=== PATIENT | male | born 1970 | race Caucasian/White ===

== ENCOUNTER → 2020-01-25 08:34 | Outpatient (CLI) | payer BC | END | disposition home or self-care (01) | LOC: D.HCCECHO 08:34 → D.HCCARDIO 09:30 | PROVIDERS: ATTEND Internal Medicine Cardiovascular Disease | DX: I20.9 Angina pectoris, unspecified (principal); R06.00 Dyspnea, unspecified ==

== ENCOUNTER 2020-02-02 07:26 | Outpatient (CLI) | payer BC ==
[~2020-02-02] VITALS: Ht 188 cm; Wt 113.6 kg
--- NOTE | ~2020-02-02 | HEMODYNAMI ---
PATIENT:WILL BERKOWITZ JR MEDICAL RECORD: [id number] : 66 LOCATION:D.CAT ADMISSION DATE: 02/02/20 Generatedon:02/02/20209:43 Patient name: WILL BERKOWITZ Patient #: [id number] SSN: DO B: 1970 Date of study: 02/02/2020 Page: Of Hemodynamic Procedure Report Patient Data Patient Demographics Procedure consent was obtained First Name: WILL Gender: Male Last Name: WOO Suffix: [facility] Initial: Bernadette : 1970 Patient #: [id number] Age: 50 year(s) Race: Additional ID: [id number] Contact details Address: [address] [place] [address] State: [place] City: [place] Zip code: [address] Past Medical History Allergies Allergen Reaction Date Comments Reported Other allergy 02/02/2020 IODINATED CONTRAST MEDIA/PCN Admission Admission Data Admission Date: 02/02/2020 Admission Time: 7:26 Arrival Date: 02/02/2020 Arrival Time: 0:00 Admit Source: Other Insurance Payor: Private health insurance [facility] #: [id number] Height (in.): 74 BSA: 2.39 (m2) Height (cm.): 187.96 BMI: 32.16 (kg/m2) Weight (lbs.): 250.51 Weight (kg.): 113.63 Lab Results Lab Result Date: 02/02/2020 Lab Result Time: 0:00 Biochemistry Name Units Result Min Max BUN mg/dl 14 --(--*-)-- 7 18 Creatinine mg/dl 1.1 --(--*-)-- 0.6 1.3 eGFR ml/min 75 *-(----)-- 90 120 NONAFRICAN CBC Name Units Result Min Max Hematocrit % 43.1 --(*---)-- 42 54 Hemoglobin g/dl 13.7 --(*---)-- 13.5 17.5 Procedure Procedure Types Cath Procedure Diagnostic Procedure [facility] w/Coronaries Sedation Charges Moderate Sedation up to 15 minutes Procedure Description Procedure Date Procedure Date: 02/02/2020 Procedure Start Time: 9:25 Procedure End Time: 9:40 Procedure Staff Name Function Mannie Dozier MD Performing Physician Cathy Oliveros RT Monitor Suha Garcia RT Scrub Renée Glaser RN Nurse Latasha Atkins RT Classified Advertising Supervisor Procedure Data Cath Procedure Fluoroscopy Diagnostic fluoroscopy Total fluoroscopy Time: 4.8 time: 4.8 min min Diagnostic fluoroscopy Total fluoroscopy dose: 763 dose: 763 mGy mGy Contrast Material Contrast Material Type Amount (ml) Isovue 300 68 Entry Location Entry Primary Successful Side Size Upsize Upsize Entry Closure Rincon ccessful Closure Location (Fr) 1 (Fr) 2 (Fr) Remarks Device Remarks Radial Right 6 Fr Mechanical artery Short Compression Estimated blood loss: 5 ml Diagnostic catheters Device Type Used For End Catheter Placement DIAGNOSTIC [place] 110cm 5 Procedure Fr catheter ([id number]) DIAGNOSTIC Ernie 110cm Procedure 5Fr catheter (075706) DIAGNOSTIC AR MOD 5Fr Procedure Catheter ([id number]) Procedure Complications No complications Procedure Medications Medication Administration Route Dosage Oxygen etCO2 Nasal cannula 2 l/min Lidocaine 2% added to field 20 Heparin Flush Bag added to field 2 bags (1000units/500ml NS) 0.9% NaCl I.V. 100 ml/hr Radial Cocktail I.A. 1 syringe (Verapamil 2mg/Nitro 400mcg/Heparin 1500units) Versed I.V. 2 mg Fentanyl I.V. 100 mcg Versed I.V. 2 mg Fentanyl I.V. 50 mcg Versed I.V. 1 mg Fentanyl I.V. 50 mcg Versed I.V. 1 mg Hemodynamics Rest BSA: 2.39 (m2) HGB: 13.7 (g/dl) O2 Consumption: Estimated: 278.59 (ml/min) O2 Co nsumption indexed: Estimated:116.56 (ml/min/m) Heart Rate: 63 (bpm) Pressure Samples Time Site Value (mmHg) Purpose Heart Use Rate(bpm) 9:28 LV 121/4,12 Snapshot 68 Gradients Valve Time Site Site Mean SEP/DFP Peak To Heart Use 1 2 (mmHg) (sec/min) Peak Rate (mmHg) (bpm) Aortic 9:29 LV AO 62 Snapshots Pre Cath Intra NCS Post Cath Vital Signs Time Heart Resp SPO2 etCO2 NIBP (mmHg) Rhythm Pain Sedation Rate (ipm) (%) (mmHg) Status Level (bpm) 9:12:00 61 18 99 29.2 164/97(121) NSR 0 (11) 10(A) , No pain 9:16:23 61 19 97 34.4 149/109(131) NSR 0 (11) 10(A) , No pain 9:20:41 58 16 93 32.9 136/81(117) NSR 0 (11) 10(A) , No pain 9:24:57 63 15 95 33.7 134/86(114) NSR 0 (11) 10(A) , No pain 9:29:09 61 16 94 33.7 110/69(103) NSR 0 (11) 9(A) , No pain 9:33:23 55 15 93 35.2 110/67(83) NSR 0 (11) 9(A) , No pain 9:37:37 60 13 94 35.2 114/69(81) NSR 0 (11) 10(A) , No pain Medications Time Medication Route Dose Verified Delivered Reason Notes Effectiveness by by 9:13:15 Oxygen etCO2 2 l/min Mannie Buffie used for Nasal Jacoby Glaser RN procedure cannula 9:13:21 Lidocaine 2% added 20ml Mannie Mannie for local to vial Jacoby Dozier MD anesthetic field 9:13:27 Heparin Flush added 2 bags Mannie Mannie used for Bag to Jacoby Dozier MD procedure (1000units/500ml field NS) 9:13:34 0.9% NaCl I.V. 100 Mannie Buffie Per ml/hr Jacoby Glaser RN physician 9:18:03 Versed I.V. 2 mg Mannie Buffie for sedation Jacoby Glaser RN 9:18:09 Fentanyl I.V. 100 mcg Mannie Buffie for sedation Jacoby Glaser RN 9:24:32 Versed I.V. 2 mg Mannie Buffie for sedation Jacoby Glaser RN 9:24:36 Fentanyl I.V. 50 mcg Mannie Buffie for sedation Jacoby Glasre RN 9:27:39 Radial Cocktail I.A. 1 Mannie Mannie for (Verapamil syringe Jacoby Dozier MD vasodilation 2mg/Nitro 400mcg/Heparin 1500units) 9:29:34 Versed I.V. 1 mg Mannie Buffie for sedation Jacoby Glaser RN 9:29:37 Fentanyl I.V. 50 mcg Mannie Buffie for sedation Jacoby Glaser RN 9:35:39 Versed I.V. 1 mg Mannie Buffie for sedation Jacoby Glaser whale trainer Log Time Note 8:48:37 Informed consent obtained and on chart 8:48:45 Diagnostic Cath Status : Elective 8:49:35 Lab Result : eGFR NONAFRICAN 75 ml/min 8:49:35 Lab Result : Hemoglobin 13.7 g/dl 8:49:35 Lab Result : BUN 14 mg/dl 8:49:35 Lab Result : Creatinine 1.1 mg/dl 8:49:35 Lab Result : Hematocrit 43.1 % 8:49:39 Arrival Date: 02/02/2020 12:00:00 AM 8:49:40 Admit Source: Other 8:49:44 Patient Height : 74 inches 8:49:49 Patient Weight : 250.51 lbs 8:49:56 Insurance Payor : Private health insurance 8:58:52 Procedure Status Elective Heart Cath (OP). 8:58:55 Latasha Atkins RT(R) sent for patient. Start room use. 8:59:03 Time tracking: Regular hours (M-F 7:00 - 5:00) 8:59:08 Plan of Care:Hemodynamics will remain stable., Cardiac rhythm will remain stable., Comfort level will be maintained., Respiratory function will remain adequate., Patient/ family verbilizes understanding of procedure., Procedure tolerated without complication., Recovers from procedure without complications.. 9:02:19 Stress Test: yes; abnormal INFERIORLY 9:02:24 Lab results completed and on chart. 9:03:03 Patient allergic to Other allergyIODINATED CONTRAST MEDIA/PCN 9:03:50 ACC Patient presents with Stable Angina CCS Anginal Class 2--Slight limitation of ordinary activity. 9:04:00 Patient received from Pre/Post Procedure Room to CCL 1 Alert and oriented. Tansferred to table in Supine position. 9:04:02 Warm blankets applied, and meli hugger turned on for patient comfort. 9:04:03 Correct patient and procedure confirmed by team. 9:04:04 ECG and BP/O2 sat monitors applied to patient. 9:10:42 Vital chart was started 9:10:43 Baseline sample Acquired. 9:10:52 Rhythm: sinus rhythm 9:10:55 Full Disclosure recording started 9:10:56 9:11:02 H&P Date Dictated: 02/02/2020 H&P Addendum completed by physician on day of procedure. (MUST COMPLETE FOR ALL OUTPATIENTS), New H&P dictated by physician.. 9:11:05 Pre-procedure instructions explained to patient. 9:11:05 Pre-op teaching completed and patient verbalized understanding. 9:11:08 Family unavailable. 9:11:11 Patient NPO since Midnight. 9:11:17 Is the patient allergic to Iodine/contrast media? Yes. 9:11:20 Was the patient premedicated? Yes 9:11:23 Is patient on blood thinner?No 9:11:27 Patient diabetic? No. 9:11:29 ----Pre-sedation anethsthesia assessment.---- 9:11:35 Previous problem with sedation/anesthesia? No ? 9:11:38 Snore? Yes 9:11:40 Sleep apnea? No 9:11:42 Deviated septum? No 9:11:47 Opens mouth fully? Yes 9:11:49 Sticks out tongue? Yes 9:11:53 Airway obstruction? No ? 9:11:58 Dentures? No ? 9:12:03 Pre procedure: right dorsailis pedis pulse 1+ Palpable, but thready & weak; easily obliterated 9:12:23 IV patent on arrival in left forearm with 0.9% NaCl at O. 9:12:40 Right Radial & Right Groin area was prepped with chlora-prep and draped in sterile fashion 9:12:43 Alarms reviewed by R. N. 9:12:43 Sharps counted by scrub and verified by R.N. 9:13:01 Notification to Mrs. Berkowitz made via telephone. 9:13:06 THE PATIENTS WAS CONTACTED BY RENÉE. 9:13:15 Oxygen 2 l/min etCO2 Nasal cannula was administered by Renée Glaser RN; used for procedure; Verbal order read back and verified. 9:13:21 Lidocaine 2% 20ml vial added to field was administered by Mannie Dozier MD; for local anesthetic; Verbal order read back and verified. 9:13:27 Heparin Flush Bag (1000units/500ml NS) 2 bags added to field was administered by Mannie Dozier MD; used for procedure; Verbal order read back and verified. 9:13:34 0.9% NaCl 100 ml/hr I.V. was administered by Renée Glaser RN; Per physician; Verbal order read back and verified. 9:13:45 Use device set Radial Dx or PCI 9:13:46 ACIST Syringe (77565) opened to sterile field. 9:13:47 Medline Cath Pack ([id number]) opened to sterile field. 9:13:48 Bag Decanter (2002S) opened to sterile field. 9:13:49 ACIST Hand Control (61765) opened to sterile field. 9:13:49 ACIST Manifold (08839) opened to sterile field. 9:13:51 MBrace Wrist Support ([id number]) opened to sterile field. 9:13:52 NEEDLE Cook 21G 4cm Radial (Y60084) opened to sterile field. 9:13:56 EMERALD Guide Wire (502-053) opened to sterile field. 9:13:57 SHEATH 6FR RAIN (6262652) opened to sterile field. 9:17:43 Physician arrived 9:17:44 --------ALL STOP TIME OUT------ 9:17:45 Final Timeout: patient, procedure, and site verified with staff and physician. All members of the team are in agreement. 9:17:47 Right Radial & Right Groin site verified by team. 9:17:54 Fire Safety Assessment: A--An alcohol-based skin anteseptic being used preoperatively., C--Open oxygen or nitrous oxide is being used., D--An ESU, laser, or fiber-optic light is being used. 9:18:01 Physical assessment completed. ASA score P 2 - A patient with mild systemic disease as per Mannie Dozier MD. 9:18:03 Versed 2 mg I.V. was administered by Renée Glaser RN; for sedation; Verbal order read back and verified. 9:18:07 2) 60-89 Mildly reduced kidney function, and other findings (as for stage 1) point to kidney disease. 9:18:09 Fentanyl 100 mcg I.V. was administered by Renée Glaser RN; for sedation; Verbal order read back and verified. 9:20:01 Maximum allowable contrast dose (3.7 X eGFR X 0.75)208 ml. 9:20:08 Sedation plan: IV Moderate Sedation Medication:Versed, Fentanyl 9:20:23 Zero performed for pressure channel P1 9:20:42 Zero performed for pressure channel P1 9:21:29 SCAI RISK PAT NOT WORKING. 9:24:32 Versed 2 mg I.V. was administered by Renée Glaser RN; for sedation; Verbal order read back and verified. 9:24:36 Fentanyl 50 mcg I.V. was administered by Renée Glaser RN; for sedation; Verbal order read back and verified. 9:25:12 Procedure started. 9:25:39 Local anesthetic to right radial artery with Lidocaine 2% by Mannie Dozier MD.INITIAL ACCESS ONLY 9:27:10 A 6 Fr Short sheath was inserted into the Right Radial artery 9:27:39 Radial Cocktail (Verapamil 2mg/Nitro 400mcg/Heparin 1500units) 1 syringe I.A. was administered by Mannie Dozier MD; for vasodilation; Verbal order read back and verified. 9:27:50 A DIAGNOSTIC [place] 110cm 5 Fr catheter (346156) was advanced over the wire and used for Procedure. 9:28:32 Injector settings: Ml/sec: 5, Volume: 15, 9:28:46 LV gram done using TORRES 9:28:48 LV hemodynamics recorded. 9:28:58 EF : 60 % 9:29:27 Injector settings: Ml/sec: 3, Volume: 6, 9:29:34 Versed 1 mg I.V. was administered by Renée Glaser RN; for sedation; Verbal order read back and verified. 9:29:37 Fentanyl 50 mcg I.V. was administered by Renée Glaser RN; for sedation; Verbal order read back and verified. 9:30:23 Catheter removed. 9:30:31 A DIAGNOSTIC Ernie 110cm 5Fr catheter (233579) was advanced over the wire and used for Procedure. 9:32:24 LCA angiography performed. 9:34:07 Catheter removed. 9:34:35 A DIAGNOSTIC AR MOD 5Fr Catheter ([id number]) was advanced over the wire and used for Procedure. 9:34:57 Baseline sample Acquired. 9:35:15 RCA angiography performed. 9:35:22 Injector settings: Ml/sec: 3, Volume: 6, 9:35:39 Versed 1 mg I.V. was administered by Renée Glaser RN; for sedation; Verbal order read back and verified. 9:36:45 ZEPHYR REGULAR TR BAND (081612) opened to sterile field. 9:36:49 Catheter removed. 9:37:23 Sheath removed intact; hemostasis achieved with Mechanical Compression to the Right Radial artery. 9:37:26 Procedure ended.(Physican Out) 9:38:21 Contrast amount:Isovue 300 68ml. 9:38:33 Fluoroscopy time 04.80 minutes. 9:38:42 Fluoroscopy dose: 763 mGy 9:38:42 Flurop Dose total: 763 9:38:54 Dose Area Product 37742 mGy/cm. 9:38:58 Maximum allowable dose exceeded? No. 9:39:00 Sharps counted by scrub and verified by R.N. 9:39:08 Flushing band inflated with 10cc of air. 9:39:11 Insertion/operative site no bleeding no hematoma. 9:39:18 Post right radial artery:stable 9:39:24 Post-procedure physical assessment completed. ASA score P 2 - A patient with mild systemic disease as per Mannie Dozier MD. 9:39:29 Post procedure rhythm: unchanged. 9:39:33 Estimated blood loss: 5 ml 9:39:34 Post procedure instruction explained to patient.Patient verbalizes understanding. 9:39:35 Patient needs reinforcement of post procedure teaching. 9:39:48 Procedure type changed to Cath procedure, Diagnostic procedure, LHC, LHC w/Coronaries, Sedation Charges, Moderate Sedation up to 15 minutes 9:39:51 Procedure and supply charges have been captured, reviewed, submitted and are correct. 9:40:31 Procedure Complication : No complications 9:40:34 Vital chart was stopped 9:40:36 [facility] Findings: mild to moderate CAD (<70%) 9:40:40 Operative report dictated upon procedure completion. 9:40:41 See physician's report for complete and final results. 9:40:43 Report given to Pre/Post Procedure Room. 9:40:46 Patient transfered to Pre/Post Procedure Room with Stretcher. 9:40:51 Procedure ended. 9:40:51 Full Disclosure recording stopped 9:41:34 End room use (Document Last) Device Usage Item Name Manufacture Quantity Catalog Hospital Part Current Minima l Lot# / Number Charge Number Stock Stock Serial# Code ACIST Acist 1 99137 871433 135261 [id number] 20 Syringe Medical (05005) Systems Inc Medline Medline 1 [id number] 972716 55467 591741 5 Cath Pack ([id number]) Bag Microtek 1 943001 51635 296006 5 Decanter Medical Inc. () ACIST Hand Acist 1 21938 227736 907409 831642 5 Control Medical (32097) Systems Inc ACIST Acist 1 79637 465928 383234 994205 5 Manifold Medical (26177) Systems Inc MBrace Advanced 1 140-0250-00 384140 39111 622068 5 Wrist Vascular Support Dynamics ([id number]) NEEDLE Cook Cook Medical 1 [id number] 443616 216743 395728 5 21G 4cm Radial (D57719) EMERALD Cardinal 1 502-455 446388 388659 067975 5 Guide Wire Health (502455) SHEATH 6FR Cardinal 1 [id number] 295900 [id number] 549086 5 [facility] Health (6134960) DIAGNOSTIC Terumo 1 40-5013 799035 660938 392385 5 [place] 110cm 5 Fr catheter (896051) DIAGNOSTIC Terumo 1 40-5023 408470 482583 636883 5 Ernie 110cm 5Fr catheter (189494) DIAGNOSTIC Cardinal 1 [id number] 750016 494808 332560 15 AR MOD 5Fr Health Catheter (028104M) ZEPHYR Cardinal 1 309355 360120 5711678 412116 5 REGULAR TR Health BAND (413214) Signature Audit [place] Stage Time Signature Unsigned Intra-Procedure 02/02/2020 Cathy 9:42:06 AM Arlin RT(R) (CV) Intra-Procedure 02/02/2020 Renée Glaser RN 9:42:33 AM Intra-Procedure 02/02/2020 Mannie Dozier MD 9:43:17 AM [facility] [address] [place] [address]
[2020-02-02] MEDS ORDERED: HYDROCHLOROTH12.5 M1 PO (07:50)
[2020-02-02] MEDS ORDERED: BAYER CHEWABLE81 MG PO (07:51)
[2020-02-02] MEDS ORDERED: TENORMIN25 MG PO (07:52)
[2020-02-02] MEDS ORDERED: PREDNISONE20 MG PO (07:53)
[2020-02-02 08:00] VITALS: BP 163/89; Ht 188 cm; Wt 113.6 kg
[2020-02-02 08:32] LABS: ANION GAP 14.9 mmol/L (8-16); BASOPHILS 0 % (0-2); CARBON DIOXIDE 24.2 mmol/L (21.0-32.0); CREATININE - SERUM 1.1 mg/dL (0.6-1.3); EOSINOPHILS 0 % (0-7); HEMATOCRIT 43.1 % (42.0-54.0); HEMOGLOBIN 13.7 g/dL (13.5-17.5); LDL-HDL RATIO 0.8 ratio (1.5-3.5); MCH 27.7 pg (26.0-34.0); MCHC 31.8 g/dL (31.0-37.0); MCV 87.2 fL (80.0-100.0); MEAN PLATELET VOLUME 9.5 fL (7.4-10.4); MONOCYTES 4.6 % (2-11); NEUTROPHILS 80.4 % (40-80); PLATELET COUNT 248 10x3/uL (130-400); POTASSIUM - SERUM 4.1 mmol/L (3.5-5.1); RBC 4.94 10x6/uL (4.20-6.10); RDW 13.5 % (11.5-14.5); WBC 6.1 10x3/uL (4.8-10.8)
--- NOTE | 2020-02-02 09:52 | NUR ---
PT ARRIVED BY STRETCHER. PLACED ON MONITORS. ASSESSMENT COMPLETED. VSS. CALL LIGHT WITHIN REACH.
--- NOTE | 2020-02-02 10:07 | NUR ---
PT RESTING COMFORTABLY. AWAKE AND ALERT. TALKING ON TELEPHONE. SET UP WITH WATER AND SANDWICH TRAY. DENIES NAUSEA/PAIN AT THIS TIME. CALL LIGHT WITHIN REACH. RIGHT WRIST Z BAND IN PLACE. NO BLEEDING/HEMATOMA NOTED.
--- NOTE | 2020-02-02 10:30 | NUR ---
RIGHT WRIST Z BAND IN PLACE. NO BLEEDING/HEMATOMA NOTED. CALL LIGHT WITHIN REACH.
--- NOTE | 2020-02-02 10:46 | NUR ---
2cc OF AIR REMOVED FROM Z BAND. NO BLEEDING/HEMATOMA NOTED. CALL LIGHT WITHIN REACH. VSS. WILL CONTINUE TO MONITOR.
--- NOTE | 2020-02-02 11:00 | NUR ---
3cc OF AIR REMOVED FROM Z BAND. NO BLEEDING/HEMATOMA NOTED. CALL LIGHT WITHIN REACH. VSS AT THIS TIME.
--- NOTE | 2020-02-02 11:15 | NUR ---
3cc OF AIR REMOVED FROM Z BAND. NO BLEEDING/HEMATOMA NOTED. TOLERATING WELL.
--- NOTE | 2020-02-02 11:30 | NUR ---
PIV D/C'D WITH CATH TIP INTACT. TOLERATED WELL. RIGHT WRIST Z BAND REMOVED. DRESSING APPLIED. NO BLEEDING/HEMATOMA NOTED. RIGHT WRIST BRACE IN PLACE. PT INSTRUCTED TO GET UP AND DRESSED AT THIS TIME. NO ASSISTANCE NEEDED. CALL LIGHT WITHIN REACH.
--- NOTE | 2020-02-02 11:44 | NUR ---
PT AMBULATED TO RESTROOM. VOIDED WITHOUT DIFFICULTY. STEADY GAIT NOTED.
--- NOTE | 2020-02-02 11:50 | NUR ---
DISCUSSED DISCHARGE INSTRUCTIONS WITH PT. HE VOICED UNDERSTANDING. RIGHT WRIST DRESSING C/D/I. NO S/S OF HEMATOMA NOTED. WAITING ON PT'S TO ARRIVE. CALL LIGHT WITHIN REACH. NO NEEDS AT THIS TIME.
--- NOTE | 2020-02-02 12:20 | NUR ---
PT AMBULATED DOWN TO VEHICLE. REFUSED WHEELCHAIR. NO S/S OF DISTRESS NOTED. ALL BELONGINGS AND PAPERWORK IN HAND.
== END 2020-02-02 12:20 | disposition home or self-care (01) ==
LOC: D.CATH 07:26
PROVIDERS: ATTEND Internal Medicine Cardiovascular Disease
DX: I20.9 Angina pectoris, unspecified (principal); R06.00 Dyspnea, unspecified